=== PATIENT | female | born 1970 | race Caucasian/White ===

== ENCOUNTER 2022-12-22 01:18 | Outpatient (RCR) | payer BC, SELFPAY ==
--- OUTSIDE RECORDS SUMMARY | 2022-11-30 11:48 | XMS_ITS ---
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 Problem Obesity E66.9 Active 449220969 Problem Hyperthyroidism E05.90 Active 3448 6009 Problem Other iron D50.8 Active 23370587 deficiency anemia Problem Acute left-sided low M54.42 Active 95586628 back pain with left-sided sciatica ALLERGIES Substance Reaction Event Type Date Status Penicillin Unknown Drug Allergy Oct, Active Sulfa Antibiotics Unknown Drug Allergy Oct, Active Nitrofurantoin Monohyd Macro Unknown Drug Allergy Oct, Active ENCOUNTERS Encounter Location Date Diagnosis [place] [address] Oct, Allergic reactio n to [place], [place] [id number] adhesive T78.49XA [facility] [address] Oct, Encounter for im munization [place] [id number] Z23 [place] [address] Oct, Primary adenocar cinoma of [place] [id number] transvers e colon C18.4 [place] [address] Oct, Hypothyroidism E 03.9 and [place], [place] [address] Iron defi ciency anemia, unspecified iron deficiency anemia type D50. 9 [place] [address] Aug, [place] [id number] [place] [address] Aug, Hospital Admit H [facility] and [place] [id number] Transitio nal Care Management TCM [facility] [place] [facility] 24 Jul, 2022 Encounter for immunization RodríguezDELANEY [id number] Z23 [place] [address] Jul, [place] [id number] [place] [address] Jun, Encounter for ge neral adult [place] [id number] medical e xamination without abnormal finding s Z00.00 ; Cervical cancer screening Z12.4 ; Colon ca ncer screening Z12.11 ; Dietary counseling Z71.3 ; Exercise counseling Z71.8 2 ; Encounter for im munization Z23 ; Iron defic iency anemia, unspecif ied iron deficiency anemi a type D50.9 ; Hypothyroidism E03.9 and Obesity E66.9 [place] [address] Apr, [place] [id number] [place] [address] Apr, [place] [id number] [place] [address] Mar, [place] [id number] [place] [address] Mar, [place] [id number] [place] [address] Mar, Iron deficiency anemia, [place] [id number] unspecifi ed iron deficiency anemia type D50. 9 [place] [address] Mar, [place] [id number] [place] [address] Mar, Other iron defic iency anemia [place] [id number] D50.8 ; H ypothyroidism E03.9 ; Peripheral javon ma R60.9 ; Encounter for im munization Z23 and Acute le ft-sided low back pain with l eft-sided sciatica M54.42 [place] [address] February, Encounter for im munization DELANEY [place] [id number] Z23 [place] [address] February, Iron deficiency anemia, [place] [id number] unspecifi ed iron deficiency anemia type D50. 9 [place] [address] Jan, Iron deficiency anemia, [place] [id number] unspecifi ed iron deficiency anemia type D50. 9 [facility] [address] 21 Jan, 2021 Cellulitis of an tecubital [place], [place] [phone] fossa L03 .119 and Iron deficiency anemi a, unspecified iron deficiency anemia type D50. 9 [facility] [address] 19 Jan, 2021 Cellulitis of an tecubital [place], [place] [id number] fossa L03 .119 and Iron deficiency anemi a, unspecified iron deficiency anemia type D50. 9 [facility] [address] 19 Jan, 2021 [place], [place] [id number] [facility] [address] 19 Jan, 2021 [place] [id number] [facility] [address] 15 Jan, 2021 Low hemoglobin a nd low [place], [place] [phone] hematocri t D64.9 [facility] [address] 14 Jan, 2021 [place], [place] [id number] [facility] [address] 13 Jan, 2021 Anemia, unspecif ied type [place], [place] [id number] D64.9 [place] [address] 06 Jan, 2021 [place] [id number] [facility] [address] 06 Jan, 2021 Hyperthyroidism E05.90 [place], [place] [phone] [place] [address] 15 Dec, 2021 [place] [id number] [place] [address] 14 Dec, 2021 [place], [place] [id number] [place] [address] 24 Nov, 2021 Hyperthyroidism E05.90 [place], [place] [id number] [place] [address] 23 Nov, 2021 Hypothyroidism E 03.9 [place], [place] [id number] [place] [address] 23 Nov, 2021 Screening for di abetes [place], [place] [id number] mellitus Z13.1 and Palpitations R00 .[address], Nov, [place] [id number] [address], Sep, [place] [phone] [facility] [address] Jul, Encounter for im munization [place], [place] [phone] Z23 IMMUNIZATIONS Vaccine Route Administration Date Status Rocephin Ceftriaxone 1g IM Intramuscular February 14, 2022 Adminis tered COVID-19 Moderna 49639 Unknown January 29, 2021 Administe red COVID-19 Moderna 95159 Unknown February 26, 2021 Administe red COVID-19 Moderna 65636 Unknown Oct 05, 2021 Administe red Typhoid PO Oral January 17, 2016 Administered SH[facility]RIX [facility] [id number] IM Intramuscular April 06, 2022 Administere d SHINGRIX [facility] 22986 IM Intramuscular Jul 28, 2022 Administere d INFLUENZA 18 YRS TO 64 YRS IM Intramuscular Aug 18, 2021 Admi nistered [employer] COVID-19 Moderna 33072 IM Intramuscular March 03, 2022 Administ ered COVID-19 Pfizer BIVALENT Age 12 and IM Intramuscular Nov 17 3 Administered older Typhoid PO Oral Sep 18, 2007 Administered Hepatitis A Unknown April 29, 2010 Administered Hepatitis A Unknown Sep 18, 2007 Administered TDAP Unknown Jun 19, 2019 Administered TDAP Unknown Sep 18, 2007 Administered MMR LRHC 83721 Unknown May 06, 2010 Administered Influenza H1N1 Unknown April 29, 2010 Administered INFLUENZA 18 YRS TO 64 YRS IM Intramuscular Aug 21, 2022 Admi nistered [employer] SOCIAL HISTORY Qualifiers Date Never Smoker REASON FOR REFERRAL Reason appt on 08.08.22 PD; FAXED T O 03.08.2022 AR iron deficiency anemia, will need EGD and colonsocopy Please contact our office wi thin 7 days to notify [facility] of scheduled appointment Referral Organization [facility] [place] Referring Provider First Name Soha Referring Provider Last Name Estefani Referring Provider Specialty Nurse Practitioner Referring Provider Referring Provider email [email or web address] Referred Provider DAWNA TAFOYA Referred Provider Specialty Unknown Referral Appointment Date 2022-08-08 FUNCTIONAL STATUS PLAN OF CARE Activity Details Referral 2022-08-08, appt on 08.08.22 PD; FAXED TO 03.08.2022 AR iron deficiency anemia, will need EGD and co lonsocopy Please contact our office within 7 days to notify [facility] of sched uled DAWNA mathias VITAL SIGNS Temperature 98.6 degrees Fahrenheit 2022-11-16 Heart Rate 77 BPM 2022-11-16 Respiratory Rate 18 /min 2022-04-06 Oximetry 98 % 2022-11-16 Height 67 in 2022-11-16 Weight 279 lbs 2022-07-28 BMI 43.69 kg/m2 2022-07-28 Blood pressure systolic 138 mmHg 2022-11-16 Blood pressure diastolic 82 mmHg 2022-11-16 MEDICATIONS Medication Instructions Dosage Frequency Start End Duration Statu s Date Date Ferrous Orally once a 2 tablets 24h 90 days Active Sulfate 325 day (65 Fe) MG Folic Acid 1 Orally Once a 1 tablet 24h 30 day(s) No t-Takin MG day g Vitamin B 12 TAKE 2 30 Active 500 MCG TABLETS BY MOUTH EVERY DAY Synthroid 200 TAKE 1 90 Active MCG TABLET BY MOUTH EVERY MORNING ON AN EMPTY STOMACH PROCEDURES Procedure Date Ordered Result Body Site INFLUENZA 18 YRS TO 64 YRS [employer] Aug 18, 2021 ELECTROCARDIOGRAM COMPLETE Dec 21, 2021 Mold Bunch Trimmer Phone Consultation Sep 25, 2022 THER/PROPH/DIAG INJ, SC/IM February 14, 2022 IMMUNIZATION ADMIN Aug 18, 2021 SPECIMEN HANDLING Jul 28, 2022 GLYCATED HEMOGLOBIN TEST Dec 21, 2021 ROCEPHIN, PER 250MG February 14, 2022 VENIPUNCTURE IH April 06, 2022 Wirama bivalent booster - 12 years and older Nov 17 IMMUNIZATION ADMIN April 06, 2022 Rocephin Ceftriaxone 1gm February 14, 2022 COVID-19 100 mcg/0.5 mL (Moderna) March 03, 2022 [facility]RIX [facility] [id number] April 06, 2022 IMMUNIZATION ADMIN Jul 28, 2022 CAPILLARY BLOOD DRAW Dec 21, 2021 INFLUENZA 18 YRS TO 64 YRS [employer] Aug 21, 2022 IMMUNIZATION ADMIN Nov 17, 2022 SHINGRIX [facility] 13497 Jul 28, 2022 IMMUNIZATION ADMIN March 03, 2022 Transitional Care Management-CC Portion Sep 25, 2022 IMMUNIZATION ADMIN Aug 21, 2022 TRANS CARE MGMT 7 DAY DISCH February 14, 2022 RESULTS Name Result Date Reference Range TSH WITH REFLEX 2022-11-08 TSH W/REFLEX TO FT4 0.80 IRON TOTAL IRON BINDING CAPACITY AND 2022-11-08 FERRITIN PANEL % SATURATION 18 16-45 FERRITIN 13 16-232 IRON BINDING CAPACITY 408 250-450 IRON, TOTAL 74 45-160 CBC WITH DIFF 2022-11-08 ABSOLUTE BASOPHILS 52 0-200 ABSOLUTE LYMPHOCYTES [phone] BASOPHILS 1.1 ABSOLUTE EOSINOPHILS 71 15-500 EOSINOPHILS 1.5 HEMATOCRIT 37.2 35.0-45.0 HEMOGLOBIN 11.3 11.7-15.5 LYMPHOCYTES 19.4 MCH 24.0 27.0-33.0 MCHC 30.4 32.0-36.0 MCV 79.1 80.0-100.0 ABSOLUTE MONOCYTES 353 200-950 MONOCYTES 7.5 MPV 10.4 7.5-12.5 NEUTROPHILS 70.5 ABSOLUTE NEUTROPHILS 3314 [phone] PLATELET COUNT 364 140-400 RED BLOOD CELL COUNT 4.70 3.80-5.10 RDW 14.9 11.0-15.0 WHITE BLOOD CELL COUNT 4.7 3.8-10.8 CBC WITH DIFF 2022-09-18 IG% 0.60 BA% 1.0 0.0-2.0 BA# 0.05 0.00-0.20 EO% 1.4 1.0-7.0 EO# 0.07 0.00-0.70 HCT 34 36-46 HGB 10.4 12.0-15.5 LY% 17 19-48 LY# 0.81 1.20-3.40 MCH 25.4 27.1-32.0 MCHC 31 33-36 IG% 0.60 MCV 83.4 81.0-99.0 MO% 7.5 3.0-10.0 MO# 0.37 0.11-0.70 IG% 0.60 NE# 3.58 1.20-6.70 IG% 0.60 NEUT% 73 40-74 PLATELETS 322 150-400 RBC 4.09 3.90-5.03 RDW 14.5 11.6-14.8 WBC 4.9 4.8-10.8 TYPE & SCREEN 2022-09-18 ABO A ANTIBODY SCREEN NEGATIVE NEGATIVE RH POSITIVE NOVEL CORONAVIRUS 2019, [place] [facility] [place] 2022-09-07 NOTES: RESULTS: Malignancy CMP 2022-09-07 A/G 1.1 AGAP 12.5 ALB 3.5 3.4-5.0 ALKP 92 39-100 ALT 23 14-59 AST 16 15-37 BUN 8 7-18 BN/CR 16.5 CA 8.6 8.5-10.1 CO2 28 21-31 CL 107 98-107 CREAT 0.48 0.55-1.02 EGFRAA 165.92 EGFRNAA 136.90 GLOB 3.16 GLU 92 70-100 K 4.2 3.5-5.1 NA 143 136-145 TBIL 0.3 <=1.2 TP 6.7 6.4-8.2 CBC WITH MANUAL DIFF 2022-09-07 %EOSINOPHIL 7 1-6 HCT 34 36-46 HGB 10.5 12.0-15.5 %LYMPHOCYTE 26 20-45 MCH 25.7 27.1-32.0 MCHC 31 33-36 MCV 84.1 81.0-99.0 %MONOCYTE 5 2-10 %NEUTROPHIL 62 40-75 PLATELETS 277 150-400 RBC 4.09 3.90-5.03 RDW 14.1 11.6-14.8 WBC 5.0 4.8-10.8 CARCINOEMBRYONIC ANTIGEN (CEA) 2022-09-07 CEA 7.5 <=3.8 NOVEL CORONAVIRUS 2018, PCR [facility] C[place] 2022-07-28 ALBUMIN 4.1 3.6-5.1 ALBUMIN/GLOBULIN RATIO 1.7 1.0-2.5 ALKALINE PHOSPHATASE 99 37-153 ALT 15 6-29 AST 14 10-35 BILIRUBIN, TOTAL 0.4 0.2-1.2 UREA NITROGEN (BUN) 9 7-25 BUN/CREATININE RATIO NOT APPLICABLE 6-22 CALCIUM 9.1 8.6-10.4 CARBON DIOXIDE 29 20-32 CHLORIDE 102 98-110 CREATININE 0.58 0.50-1.03 EGFR 110 > OR = 60 GLOBULIN 2.4 1.9-3.7 GLOBULIN 2.4 1.9-3.7 GLUCOSE 85 65-99 POTASSIUM 4.8 3.5-5.3 PROTEIN, TOTAL 6.5 6.1-8.1 SODIUM 140 135-146 TSH WITH REFLEX 2022-07-28 TSH W/REFLEX TO FT4 3.69 IRON TOTAL IRON BINDING CAPACITY AND 2022-07-28 FERRITIN PANEL % SATURATION 12 16-45 FERRITIN 11 16-232 IRON BINDING CAPACITY 456 250-450 IRON, TOTAL 53 45-160 CBC WITH DIFF 2022-07-28 ABSOLUTE BASOPHILS 71 0-200 ABSOLUTE LYMPHOCYTES [phone] BASOPHILS 1.4 ABSOLUTE EOSINOPHILS 133 15-500 EOSINOPHILS 2.6 HEMATOCRIT 38.6 35.0-45.0 HEMOGLOBIN 11.7 11.7-15.5 LYMPHOCYTES 19.5 MCH 25.8 27.0-33.0 MCHC 30.3 32.0-36.0 MCV 85.2 80.0-100.0 ABSOLUTE MONOCYTES 474 200-950 MONOCYTES 9.3 MPV 10.0 7.5-12.5 NEUTROPHILS 67.2 ABSOLUTE NEUTROPHILS 3427 [phone] PLATELET COUNT 362 140-400 RED BLOOD CELL COUNT 4.53 3.80-5.10 RDW 13.8 11.0-15.0 WHITE BLOOD CELL COUNT 5.1 3.8-10.8 VITAMIN B12 AND FOLATE SERUM PANEL 2022-07-28 FOLATE, SERUM >24.0 VITAMIN B12 [phone] LIPID PANEL 2022-07-28 CHOLESTEROL, TOTAL 182 <200 CHOLESTEROL, TOTAL 182 <200 HDL CHOLESTEROL 68 > OR = 50 LDL-CHOLESTEROL 100 NON HDL CHOLESTEROL 114 <130 CHOL/HDLC RATIO 2.7 <5.0 TRIGLYCERIDES 53 <150 THINPREP PAP AND HPV mRNA E6 E7 with 2022-07-28 imaging CLINICAL INFORMATION: COMMENT COMMENT: EMAIL CAMPAIGN SPECIALIST: HPV mRNA E6/E7 Not Detected Not Detected INTERPRETATION/RESULT: LMP: PREV. BX: PREV. PAP: REVIEW EMAIL CAMPAIGN SPECIALIST: SOURCE: STATEMENT OF ADEQUACY: IRON BINDING CAPACITY, TOTAL 2022-05-22 TIBC 355 250-450 CBC, AUTO DIFF 2022-05-22 BA# 0.02 0.00-0.20 BA% 0.4 0.0-2.0 EO# 0.16 0.00-0.70 EO% 3.3 1.0-7.0 HCT 40 36-46 HGB 11.8 12.0-15.5 LY# 1.08 1.20-3.40 LY% 22 19-48 MCH 25.2 27.1-32.0 MCHC 30 33-36 MCV 84.8 81.0-99.0 MO# 0.32 0.11-0.70 MO% 6.5 3.0-10.0 NE# 3.32 1.20-6.70 NEUT% 68 40-74 PLATELETS 230 150-400 RBC 4.68 3.90-5.03 RDW 17.0 11.6-14.8 WBC 4.9 4.8-10.8 FERRITIN 2022-05-22 FERR 158 8-252 CMP 2022-04-06 ALBUMIN 4.2 3.6-5.1 ALBUMIN/GLOBULIN RATIO 1.6 1.0-2.5 ALKALINE PHOSPHATASE 103 37-153 ALT 12 6-29 AST 16 10-35 BILIRUBIN, TOTAL 0.3 0.2-1.2 UREA NITROGEN (BUN) 10 7-25 BUN/CREATININE RATIO NOT APPLICABLE 6-22 CALCIUM 9.2 8.6-10.4 CARBON DIOXIDE 25 20-32 CHLORIDE 105 98-110 CREATININE 0.54 0.50-1.05 eGFR 128 > OR = 60 eGFR NON-AFR. [place] 110 > OR = 60 GLOBULIN 2.7 1.9-3.7 GLOBULIN 2.7 1.9-3.7 GLUCOSE 84 65-99 POTASSIUM 4.4 3.5-5.3 PROTEIN, TOTAL 6.9 6.1-8.1 SODIUM 140 135-146 TSH WITH REFLEX 2022-04-06 TSH W/REFLEX TO FT4 0.56 IRON TOTAL IRON BINDING CAPACITY AND 2022-04-06 FERRITIN PANEL % SATURATION 5 16-45 FERRITIN 11 16-232 IRON BINDING CAPACITY 432 250-450 IRON, TOTAL 21 45-160 CBC WITH DIFF 2022-04-06 ABSOLUTE BASOPHILS 59 0-200 ABSOLUTE LYMPHOCYTES [phone] BASOPHILS 1.1 COMMENT(S) ABSOLUTE EOSINOPHILS 130 15-500 EOSINOPHILS 2.4 HEMATOCRIT 38.1 35.0-45.0 HEMOGLOBIN 11.4 11.7-15.5 LYMPHOCYTES 21.8 MCH 23.0 27.0-33.0 MCHC 29.9 32.0-36.0 MCV 77.0 80.0-100.0 ABSOLUTE MONOCYTES 340 200-950 MONOCYTES 6.3 MPV 9.8 7.5-12.5 NEUTROPHILS 68.4 ABSOLUTE NEUTROPHILS 3694 [phone] PLATELET COUNT 373 140-400 RED BLOOD CELL COUNT 4.95 3.80-5.10 RDW 22.5 11.0-15.0 WHITE BLOOD CELL COUNT 5.4 3.8-10.8 VITAMIN B12 AND FOLATE SERUM PANEL 2022-04-06 FOLATE, SERUM >24.0 VITAMIN B12 [phone] FERRITIN 2022-02-22 FERRITIN 33 16-232 CBC WITH DIFF 2022-02-22 ABSOLUTE BASOPHILS 68 0-200 ABSOLUTE LYMPHOCYTES [phone] BASOPHILS 1.2 COMMENT(S) ABSOLUTE EOSINOPHILS 222 15-500 EOSINOPHILS 3.9 HEMATOCRIT 33.9 35.0-45.0 HEMOGLOBIN 9.3 11.7-15.5 LYMPHOCYTES 20.0 MCH 18.8 27.0-33.0 MCHC 27.4 32.0-36.0 MCV 68.5 80.0-100.0 ABSOLUTE MONOCYTES 371 200-950 MONOCYTES 6.5 MPV 7.5-12.5 NEUTROPHILS 68.4 ABSOLUTE NEUTROPHILS 3899 [phone] PLATELET COUNT 479 140-400 RED BLOOD CELL COUNT 4.95 3.80-5.10 RDW 11.0-15.0 WHITE BLOOD CELL COUNT 5.7 3.8-10.8 CBC WITH DIFF 2022-02-14 ABSOLUTE BASOPHILS 69 0-200 ABSOLUTE LYMPHOCYTES [phone] BASOPHILS 0.8 CBC MORPHOLOGY NORMAL COMMENT(S) ABSOLUTE EOSINOPHILS 112 15-500 EOSINOPHILS 1.3 HEMATOCRIT 30.4 35.0-45.0 HEMOGLOBIN 8.6 11.7-15.5 LYMPHOCYTES 13.7 MCH 18.1 27.0-33.0 MCHC 28.3 32.0-36.0 MCV 64.1 80.0-100.0 ABSOLUTE MONOCYTES 550 200-950 MONOCYTES 6.4 MPV 7.5-12.5 NEUTROPHILS 77.8 ABSOLUTE NEUTROPHILS [phone] PLATELET COUNT 346 140-400 RED BLOOD CELL COUNT 4.74 3.80-5.10 RDW 31.8 11.0-15.0 WHITE BLOOD CELL COUNT 8.6 3.8-10.8 CBC, AUTO DIFF 2022-02-13 BA# 0.04 0.00-0.20 BA% 0.5 0.0-2.0 EO# 0.17 0.00-0.70 EO% 2.2 1.0-7.0 HCT 30 36-46 HGB 8.3 12.0-15.5 LY# 1.13 1.20-3.40 LY% 15 19-48 MCH 17.4 27.1-32.0 MCHC 27 33-36 MCV 63.7 81.0-99.0 MO# 0.51 0.11-0.70 MO% 6.7 3.0-10.0 NE# 5.79 1.20-6.70 NEUT% 76 40-74 PLATELETS 348 150-400 RBC 4.76 3.90-5.03 RDW 31.2 11.6-14.8 WBC 7.6 4.8-10.8 CMP 2022-02-11 A/G 0.9 AGAP 14.5 ALB 3.0 3.4-5.0 ALKP 110 39-100 ALT 15 14-59 AST 13 15-37 BUN 12 7-18 BN/CR 23.7 CA 8.2 8.5-10.1 CO2 24 21-31 CL 108 98-107 CREAT 0.52 0.55-1.02 EGFRAA 151.28 EGFRNAA 124.82 GLOB 3.36 GLU 95 70-100 K 3.9 3.5-5.1 NA 143 136-145 TBIL 0.8 <=1.2 TP 6.4 6.4-8.2 TSH WITH REFLEX 2022-02-11 TSH 0.807 0.360-3.740 FOLATE (COTTAGE) 2022-02-11 FOL 2.7 8.6-58.9 CBC, AUTO DIFF 2022-02-11 BA# 0.06 0.00-0.20 BA% 1.2 0.0-2.0 EO# 0.14 0.00-0.70 EO% 2.7 1.0-7.0 HCT 26 36-46 HGB 7.3 12.0-15.5 LY# 1.62 1.20-3.40 LY% 32 19-48 MCH 17.3 27.1-32.0 MCHC 28 33-36 MCV 62.5 81.0-99.0 MO# 0.45 0.11-0.70 MO% 8.8 3.0-10.0 NE# 2.84 1.20-6.70 NEUT% 56 40-74 PLATELETS 344 150-400 RBC 4.21 3.90-5.03 RDW 28.8 11.6-14.8 WBC 5.1 4.8-10.8 MAGNESIUM 2022-02-11 MG 2.2 1.8-2.4 RETICULOCYTE COUNT 2022-02-11 RETICULOCYTE COUNT 1.0 0.6-2.6 OCCULT BLOOD 2022-02-11 OCCBLD Negative NEGATIVE BMP 2022-02-10 AGAP 12.6 BUN 16 7-18 BN/CR 25.9 CA 8.9 8.5-10.1 CO2 25 21-31 CL 107 98-107 CREAT 0.61 0.55-1.02 EGFRAA 125.83 EGFRNAA 103.82 GLU 113 70-100 K 4.1 3.5-5.1 NA 141 136-145 LRBC 2 UNITS 2022-02-10 ABO/RH A POSITIVE ANTIBODY SCREEN NEGATIVE NEGATIVE CROSSMATCH #1 COMPATIBLE COMPATIBLE CROSS 2 COMPATIBLE COMPATIBLE DONOR #1 ABO/RH A POSITIVE DONOR #1 EXPIRATION DATE 02/22/2022 DONOR#2 ABO/RH A POSITIVE DONOR #2 EXPIRATION DATE 02/22/2022 BLOOD PRODUCT TYPE LRBC PRODUCT#2 LRBC UNIT # [id number] CBC, AUTO DIFF 2022-02-10 BA# 0.04 0.00-0.20 BA% 0.6 0.0-2.0 EO# 0.07 0.00-0.70 EO% 1.1 1.0-7.0 HCT 22 36-46 HGB 5.7 12.0-15.5 LY# 1.02 1.20-3.40 LY% 17 19-48 MCH 14.6 27.1-32.0 MCHC 26 33-36 MCV 56.8 81.0-99.0 MO# 0.47 0.11-0.70 MO% 7.6 3.0-10.0 MORPH? YES NE# 4.58 1.20-6.70 NEUT% 74 40-74 PLATELETS 411 150-400 RBC 3.91 3.90-5.03 RDW 22.2 11.6-14.8 WBC 6.2 4.8-10.8 FERRITIN 2022-02-10 FERR 3 8-252 IRON PANEL 2022-02-10 SAT 2.0 FE 9 50-170 TIBC 466 250-450 RBC MORPHOLOGY 2022-02-10 ANISOCYTOSIS 2+ HYPOCHROMASIA 2+ LARGE OR GIANT PLATELETS PRESENT ABSENT MICROCYTOSIS 3+ PLATELET ESTIMATE Normal NORMAL ROULEAUX PRESENT ABSENT TYPE & SCREEN 2022-02-10 ABO A ANTIBODY SCREEN NEGATIVE NEGATIVE RH POSITIVE VIRAL PANEL BY PCR (FLU A/B, RSV, 2022-02-10 SARS-COV-2) CBC WITH DIFF 2022-02-08 ABSOLUTE BASOPHILS 77 0-200 ABSOLUTE LYMPHOCYTES [phone] BASOPHILS 1.1 CBC MORPHOLOGY NORMAL ABSOLUTE EOSINOPHILS 161 15-500 EOSINOPHILS 2.3 HEMATOCRIT 24.1 35.0-45.0 HEMOGLOBIN 6.3 11.7-15.5 LYMPHOCYTES 19.9 MCH 15.0 27.0-33.0 MCHC 26.1 32.0-36.0 MCV 57.2 80.0-100.0 ABSOLUTE MONOCYTES 504 200-950 MONOCYTES 7.2 MPV 7.5-12.5 NEUTROPHILS 69.5 ABSOLUTE NEUTROPHILS [phone] PLATELET COUNT 447 140-400 RED BLOOD CELL COUNT 4.21 3.80-5.10 RDW 21.7 11.0-15.0 WHITE BLOOD CELL COUNT 7.0 3.8-10.8 TSH WITH REFLEX 2022-02-01 TSH W/REFLEX TO FT4 0.46 HGA1C FINGERSTICK 2021-12-21 HGA1C 5.5 4 - 7 ELECTROCARDIOGRAM EKG 2021-12-21 Results: [facility] 2021-12-21 ALBUMIN 4.1 3.6-5.1 ALBUMIN/GLOBULIN RATIO 1.7 1.0-2.5 ALKALINE PHOSPHATASE 114 37-153 ALT 12 6-29 AST 13 10-35 BILIRUBIN, TOTAL 0.3 0.2-1.2 UREA NITROGEN (BUN) 12 7-25 BUN/CREATININE RATIO NOT APPLICABLE 6-22 CALCIUM 8.8 8.6-10.4 CARBON DIOXIDE 23 20-32 CHLORIDE 107 98-110 CREATININE 0.51 0.50-1.05 eGFR 130 > OR = 60 eGFR NON-AFR. [place] 112 > OR = 60 GLOBULIN 2.4 1.9-3.7 GLOBULIN 2.4 1.9-3.7 GLUCOSE 109 65-139 POTASSIUM 4.2 3.5-5.3 PROTEIN, TOTAL 6.5 6.1-8.1 SODIUM 140 135-146 T3 FREE 2021-12-21 T3, FREE 2.9 2.3-4.2 T4 FREE ORDER WITH TOTAL 2021-12-21 T4, FREE 1.6 0.8-1.8 TSH THYROID STIMULATING HORMONE 2021-12-21 TSH 0.18 TSH WITH REFLEX 2021-01-24 TSH TSH 0.47 T4 FREE 1.69 TSH W/REFLEX TO FT4 [facility] 2020-12-22 AGAP ALKP ALT CA EGFRAA EGFRNAA A/G RATIO ALBUMIN ALK. PHOSPHATASE ALT(SGPT) ANION GAP AST (SGOT) BUN/CRE2 BUN/CREAT RATIO CALCIUM CHLORIDE CREATININE CREATININE GFR GFR GLOBULIN GLUCOSE POTASSIUM SODIUM TOTAL BILIRUBIN TOTAL PROTEIN GLUCOSE 101 65 - 99 mg/dl BUN 13 7 - 25 mg/dl CREATININE 0.48 0.50 - 0.99 mg/d l SODIUM 141 135 - 146 mmol/L POTASSIUM 4.3 3.5 - 5.3 mmol/L CHLORIDE 106 98 - 110 mmol/l CARBON DIOXIDE 27 CALCIUM 8.9 8.6 - 10.4 mg/dl ANION GP 8 BUN/CREATININE RATIO eGFR NON-AFR. [place] 115 AST/SGOT 14 10 - 35 U/L ALT/SGPT 14 6 - 40 U/L ALKALINE PHOSPHATASE 140 33 - 130 U/ L BILIRUBIN TOTAL 0.2 .2 - 1.2 mg/dl ALBUMIN 4.1 3.6 - 5.1 g/dl PROTEIN TOTAL 7.2 6.1 - 8.1 g/dl ALBUMIN/GLOBULIN RATIO eGFR ALBUMIN ALBUMIN/GLOBULIN RATIO ALKALINE PHOSPHATASE BILIRUBIN TOTAL BUN/CREATININE RATIO CALCIUM CARBON DIOXIDE CREATININE GLOBULIN GFR GLUCOSE POTASSIUM PROTEIN TOTAL POTASSIUM SODIUM A/G RAT AST/SGOT SODIUM PROTEIN TOTAL BUN CHLORIDE ALT/SGPT GLUCOSE BILIRUBIN TOTAL ALBUMIN PROTEIN TOTAL ALBUMIN BUN BILIRUBIN TOTAL CALCIUM CREATININE ALKALINE PHOSPHATASE AST/SGOT ALT/SGPT CARBON DIOXIDE BUN/CREATININE RATIO GLOBULIN A/G RATIO BUN/CREATININE RATIO ALKALINE PHOSPHATASE GLOBULIN AST/SGOT eGFR BUN CALCIUM CHLORIDE eGFR NON- CREATININE CARBON DIOXIDE GLUCOSE SODIUM POTASSIUM ALT/SGPT COMMENT EGFR LIPID PANEL 2020-12-22 LDL (CALCULATED) CHOLESTEROL 141 TRIGLYCERIDES 52 LDL 81 HDL 50 RISK 2.8 [place] NON-HDL CHOLESTEROL CHOLESTEROL CHOLESTEROL RISK TRIGLYCERIDES HDL LDL VLDL CHOLESTEROL CALCULATED TSH THYROID STIMULATING HORMONE 2020-09-03 TSH 0.01 0.40 - 4.5 mIU/L THINPREP PAP REFLEX HPV mRNA E6 E7 2017 CLINICAL INFORMATION: COMMENT COMMENT: EMAIL CAMPAIGN SPECIALIST: GENERAL CATEGORIZATION: HPV mRNA E6/E7 Positive INFECTION: INTERPRETATION/RESULT: NILM LMP: PATHOLOGIST: PREV. BX: PREV. PAP: REVIEW EMAIL CAMPAIGN SPECIALIST: SOURCE: STATEMENT OF ADEQUACY: REASON FOR VISIT Insurance Providers [facility] Member Patient Patient Patient Patient Patient Subscriber Subscriber Subscriber Group Insurance Plan Plan Plan Plan ID Relationship Address Phone Name Date of ID Name Date of No Type Insurance Insurance Insurance Coverage to Subscriber Address Phone Name Dates KEN CROSS [phone] [employer] self Preethi 1 [id number] ([facility] [address] [facility] [id number] [id number] [facility]) [facility]) ld [id number] MEDICAL (GENERAL) HISTORY Type Description Date Medical History Dermatographia Medical History Hypothyroid Medical History Graves Disease, trt, Radioactive Iodine Medical History Impaired Fasting Blood Sugar Medical History Infertility, Female, Secondary Medical History Obesity Medical History Varicella Medical History 1994 Colposcopy & LEEP Medical History h/o Elective Medical History 09/2020 Hemorrhoids Medical History Chronic Vaginitis Medical History Latrogenic Hypothyroidism Medical History 12/2020 Vaginal Pain, Vaginitis Medical History 12/2020 Leg Edema 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
[2022-12-01] MEDS: Normal Saline Flush 10 ML SYR IVP (10:58)
[2022-12-01 11:07] LABS: Abs Immature Grans 0.02 10^3/uL (0.0-0.06); Absolute Basophil Count 0.07 10^3/uL (0.0-0.2); Absolute Eosinophil Count 0.14 10^3/uL (0.0-0.7); Absolute Lymphocyte Count 1.43 10^3/uL (1.2-3.4); Absolute Monocyte Count 0.54 10^3/uL (0.1-0.8); Absolute Neutrophil Count 4.23 10^3/uL (1.2-6.7); Basophils % 1.1; Eosinophils % 2.2; HGB 12.3 g/dL (11.2-15.7); Immature Grans % 0.3; Lymphocytes % 22.2; MCH 24.1 pg (27.0-33.0); MCV 80 fL (80-95); MPV 9.7 fL (8.0-11.0); Monocytes % 8.4; Neutrophils % 65.8; Platelet Count 326 10^3/uL (130-400); RBC 5.11 10^6/uL (3.93-5.22); RDW-SD 49.3 fL; WBC 6.43 10^3/uL (4.4-10.8)
[2022-12-01 11:22] LABS: ALT 22 U/L (14-59); AST 14 U/L (15-37); Albumin 3.9 g/dL (3.4-5.0); Alkaline Phosphatase 117 U/L (46-116); Anion Gap 9.2 mmol/L (3-11); BUN 18 mg/dL (7-18); Bilirubin, Total 0.3 mg/dL (0.2-1.0); CO2 26.8 mmol/L (21.0-32.0); CREATININE 0.6 mg/dL (0.55-1.02); Calcium 9.1 mg/dL (8.5-10.1); Chloride 106 mmol/L (98-107); Estimated GFR 108.61 (mL/min/1.73m2); Glucose 97 mg/dL (74-106); Potassium 4.2 mmol/L (3.5-5.1); Sodium 142 mmol/L (136-145); Total Protein 7.4 g/dL (6.4-8.2)
[2022-12-01 20:18] LABS: CEA 0.9 ng/mL (See Note)
[2022-12-22] MEDS: Normal Saline Flush 10 ML SYR IVP (09:42)
[2022-12-22 09:59] LABS: Abs Immature Grans 0.03 10^3/uL (0.0-0.06); Absolute Basophil Count 0.03 10^3/uL (0.0-0.2); Absolute Eosinophil Count 0.09 10^3/uL (0.0-0.7); Absolute Lymphocyte Count 0.89 10^3/uL (1.2-3.4); Absolute Monocyte Count 0.65 10^3/uL (0.1-0.8); Absolute Neutrophil Count 3.54 10^3/uL (1.2-6.7); Basophils % 0.6; Eosinophils % 1.7; HGB 12.6 g/dL (11.2-15.7); Immature Grans % 0.6; MCH 25.4 pg (27.0-33.0); MCHC 31.5 % (32.0-36.0); MCV 81 fL (80-95); MPV 8.5 fL (8.0-11.0); Monocytes % 12.4; Neutrophils % 67.7; Platelet Count 245 10^3/uL (130-400); RBC 4.96 10^6/uL (3.93-5.22); RDW 20.3 % (11.7-14.6); RDW-SD 50.3 fL; WBC 5.23 10^3/uL (4.4-10.8)
[2022-12-22 10:10] LABS: Anisocytosis 2+; Diff Comment RBC Morph Reviewed
[2022-12-22 10:15] LABS: ALT 18 U/L (14-59); AST 14 U/L (15-37); Albumin 3.9 g/dL (3.4-5.0); Alkaline Phosphatase 101 U/L (46-116); BUN 11 mg/dL (7-18); Bilirubin, Total 0.5 mg/dL (0.2-1.0); CREATININE 0.6 mg/dL (0.55-1.02); Calcium 9.3 mg/dL (8.5-10.1); Chloride 105 mmol/L (98-107); Estimated GFR 108.61 (mL/min/1.73m2); Glucose 102 mg/dL (74-106); Potassium 4.4 mmol/L (3.5-5.1); Sodium 141 mmol/L (136-145); Total Protein 7.3 g/dL (6.4-8.2)
[2022-12-25 11:11] LABS: CEA 1.2 ng/mL (See Note)
== END 2022-12-26 23:59 | disposition home or self-care (01) ==
LOC: INF 01:18
PROVIDERS: PCP Nurse Practitioner; Visit Provider Internal Medicine Hematology & Oncology
DX: Z45.2 Encounter for adjustment and management of vascular access device (principal); C18.4 Malignant neoplasm of transverse colon
CPT/HCPCS: 36591; 80053; 82378; 85025

== ENCOUNTER 2023-01-12 01:14 | Outpatient (RCR) | payer BC, SELFPAY ==
[2023-01-12] MEDS: Normal Saline Flush 10 ML SYR IVP (12:17)
[2023-01-12 12:32] LABS: Abs Immature Grans 0.01 10^3/uL (0.0-0.06); Absolute Basophil Count 0.03 10^3/uL (0.0-0.2); Absolute Eosinophil Count 0.08 10^3/uL (0.0-0.7); Absolute Lymphocyte Count 0.97 10^3/uL (1.2-3.4); Absolute Monocyte Count 0.57 10^3/uL (0.1-0.8); Absolute Neutrophil Count 2.44 10^3/uL (1.2-6.7); Basophils % 0.7; HCT 37.5 % (36.0-46.0); HGB 12.1 g/dL (11.2-15.7); Immature Grans % 0.2; Lymphocytes % 23.7; MCH 26.2 pg (27.0-33.0); MCHC 32.3 % (32.0-36.0); MCV 81 fL (80-95); MPV 8.6 fL (8.0-11.0); Monocytes % 13.9; Neutrophils % 59.5; Platelet Count 190 10^3/uL (130-400); RBC 4.61 10^6/uL (3.93-5.22); RDW 22.1 % (11.7-14.6); RDW-SD 55.3 fL
[2023-01-12 12:47] LABS: Anisocytosis 2+; Diff Comment RBC Morph Reviewed
[2023-01-12 12:48] LABS: Poikilocytes 1+
[2023-01-12 12:53] LABS: ALT 28 U/L (14-59); AST 19 U/L (15-37); Albumin 3.6 g/dL (3.4-5.0); Alkaline Phosphatase 94 U/L (46-116); Anion Gap 7.7 mmol/L (3-11); BUN 14 mg/dL (7-18); Bilirubin, Total 0.3 mg/dL (0.2-1.0); CO2 26.3 mmol/L (21.0-32.0); CREATININE 0.5 mg/dL (0.55-1.02); Calcium 8.4 mg/dL (8.5-10.1); Chloride 109 mmol/L (98-107); Estimated GFR 113.48 (mL/min/1.73m2); Glucose 114 mg/dL (74-106); Potassium 3.8 mmol/L (3.5-5.1); Sodium 143 mmol/L (136-145); Total Protein 6.6 g/dL (6.4-8.2)
[2023-01-12 22:52] LABS: CEA 1.8 ng/mL (See Note)
== END 2023-01-26 23:59 | disposition home or self-care (01) ==
LOC: INF 01:14
PROVIDERS: PCP Nurse Practitioner; Visit Provider Internal Medicine Hematology & Oncology
DX: Z45.2 Encounter for adjustment and management of vascular access device (principal); C18.4 Malignant neoplasm of transverse colon
CPT/HCPCS: 36591; 80053; 82378; 85025

== ENCOUNTER 2023-02-02 01:29 | Outpatient (RCR) | payer BC, SELFPAY ==
[2023-02-02] MEDS: Normal Saline Flush 10 ML SYR IVP (09:10)
[2023-02-02 09:19] LABS: Abs Immature Grans 0.02 10^3/uL (0.0-0.06); Absolute Basophil Count 0.02 10^3/uL (0.0-0.2); Absolute Eosinophil Count 0.07 10^3/uL (0.0-0.7); Absolute Lymphocyte Count 0.85 10^3/uL (1.2-3.4); Absolute Monocyte Count 0.49 10^3/uL (0.1-0.8); Absolute Neutrophil Count 2.58 10^3/uL (1.2-6.7); Basophils % 0.5; Eosinophils % 1.7; HCT 36.1 % (36.0-46.0); HGB 11.6 g/dL (11.2-15.7); Immature Grans % 0.5; Lymphocytes % 21.1; MCHC 32.1 % (32.0-36.0); MCV 84 fL (80-95); MPV 8.5 fL (8.0-11.0); Monocytes % 12.2; Platelet Count 203 10^3/uL (130-400); RDW 23.8 % (11.7-14.6); RDW-SD 70.3 fL; WBC 4.03 10^3/uL (4.4-10.8)
[2023-02-02 09:26] LABS: Anisocytosis 2+; Diff Comment RBC Morph Reviewed
[2023-02-02 09:34] LABS: ALT 23 U/L (14-59); AST 16 U/L (15-37); Albumin 3.6 g/dL (3.4-5.0); Alkaline Phosphatase 93 U/L (46-116); Anion Gap 7.9 mmol/L (3-11); BUN 14 mg/dL (7-18); Bilirubin, Total 0.4 mg/dL (0.2-1.0); CO2 25.1 mmol/L (21.0-32.0); CREATININE 0.7 mg/dL (0.55-1.02); Calcium 8.6 mg/dL (8.5-10.1); Chloride 109 mmol/L (98-107); Estimated GFR 104.65 (mL/min/1.73m2); Glucose 129 mg/dL (74-106); Potassium 3.8 mmol/L (3.5-5.1); Sodium 142 mmol/L (136-145); Total Protein 6.7 g/dL (6.4-8.2)
[2023-02-02 20:53] LABS: CEA 1.5 ng/mL (See Note)
== END 2023-02-25 23:59 | disposition home or self-care (01) ==
LOC: INF 01:29
PROVIDERS: PCP Nurse Practitioner; Visit Provider Internal Medicine Hematology & Oncology
DX: Z45.2 Encounter for adjustment and management of vascular access device (principal); C18.4 Malignant neoplasm of transverse colon
CPT/HCPCS: 36591; 80053; 82378; 85025